=== PATIENT | male | born 1995 | race Caucasian/White ===

== ENCOUNTER 2025-07-04 22:01 | Emergency (ER) | payer MEDICAID ==
[~2025-07-04] VITALS: Ht 170.2 cm; Wt 82.0 kg
[2025-07-04 22:30] VITALS: O2SAT 97
[2025-07-04 23:00] LABS: BASOPHILS % 0.3 % (0.0-2.0); EOSINOPHILS % 1.5 % (0.0-5.0); HEMATOCRIT. 43.6 % (42.0-52.0); HEMOGLOBIN. 14.7 g/dL (14.0-18.0); LYMPHOCYTES % 24.3 % (20.0-50.0); MEAN PLATELET VOLUME 9.0 fl (7.4-10.4); MONOCYTES % 6.6 % (2.0-8.0); NEUTROPHILS % 67.3 % (40.0-76.0); PLATELET 188 x1000/uL (130-400); RED BLOOD CELL COUNT 4.41 mill/uL (4.7-6.1); RED CELL DISTRIBUTION WIDTH 16.0 % (11.6-14.6)
[2025-07-04 23:13] LABS: CREATININE 0.9 mg/dL (0.6-1.3); UREA NITROGEN BLOOD 18 mg/dL (9-23)
[2025-07-04 23:57] LABS: TROPONIN I HIGH SENSITIVITY < 4 ng/L (3.0-53)
[2025-07-05 01:38] LABS: *AMPHETAMINES SCREEN URINE NEGATIVE (NEGATIVE)
[2025-07-05 01:39] LABS: *BARBITURATES SCREEN URINE NEGATIVE (NEGATIVE); *BENZODIAZEPINES SCREEN URINE NEGATIVE (NEGATIVE); *COCAINE SCREEN URINE NEGATIVE (NEGATIVE); CANNABINOID URINE SCREEN NEGATIVE (NEGATIVE); ECSTASY MDMA SCREEN URINE NEGATIVE (NEGATIVE); METHADONE URINE SCREEN NEGATIVE (NEGATIVE); OPIATES URINE SCREEN NEGATIVE (NEGATIVE); PHENCYCLIDINE URINE SCREEN NEGATIVE (NEGATIVE)
[2025-07-05 02:19] VITALS: BP 151/99; PULSE 88; RESP 18; TEMP 36.6; O2SAT 98
== END 2025-07-05 02:21 | disposition home or self-care (01) ==
LOC: ER 22:01
DX: Z00.00 Encounter for general adult medical examination without abnormal findings (principal); R44.3 Hallucinations, unspecified; R00.2 Palpitations; Z88.6 Allergy status to analgesic agent
CPT/HCPCS: 36415; 80048; 80305; 80307; 80320; 80329; 84484; 85025; 93005; 99284; G0480